=== PATIENT | male | born 1970 | race Caucasian/White ===

== ENCOUNTER 2023-10-15 10:55 | Outpatient (CLI) | payer BC, SELFPAY | END 2023-10-15 10:56 | disposition home or self-care (01) | LOC: NFLDREF 10-18 09:28 | PROVIDERS: PCP Family Medicine; Referring Provider Family Medicine; Visit Provider Nurse Practitioner | DX: N30.00 Acute cystitis without hematuria (principal); N30.01 Acute cystitis with hematuria | CPT/HCPCS: 87086; 87186 ==

== ENCOUNTER 2023-11-06 12:55 | Outpatient (CLI) | payer BC, SELFPAY | END 2023-11-06 12:56 | disposition home or self-care (01) | LOC: NFLDREF 11-08 06:28 | PROVIDERS: PCP Family Medicine; Referring Provider Family Medicine; Visit Provider Nurse Practitioner Family | DX: R30.0 Dysuria (principal); B96.20 Unspecified Escherichia coli [E. coli] as the cause of diseases classified elsewhere | CPT/HCPCS: 87086; 87186 ==